=== PATIENT | male | born 1990 | race African-American/Black ===

== ENCOUNTER 2017-09-13 23:08 | Emergency (ER) | payer BC ==
[~2017-09-13] VITALS: Ht 180.3 cm; Wt 99.8 kg
[2017-09-14] MEDS ORDERED: PROMETHAZINE/C118 ML PO (01:40)
[2017-09-14] MEDS ORDERED: ZPAK PO (01:40)
[2017-09-14] MEDS ORDERED: IBUPROFEN 800800 M1 PO (01:40)
== END 2017-09-14 02:04 | disposition home or self-care (01) ==
LOC: ER 23:08
DX: J18.9 Pneumonia, unspecified organism (principal)

== ENCOUNTER 2021-02-08 14:50 | Emergency (ER) | payer BC ==
[~2021-02-08] VITALS: Ht 180.3 cm; Wt 99.8 kg
[~2021-02-08 14:50] MED LIST: IBUPROFEN 800800 M1 PO; PROMETHAZINE/C118 ML PO; ZPAK PO
[2021-02-08] MEDS ORDERED: CEPHALEXIN500 MG PO (15:58)
[2021-02-08 16:22] VITALS: BP 132/73
== END 2021-02-08 16:22 | disposition home or self-care (01) ==
LOC: ER 14:50
DX: S61.311A Laceration without foreign body of left index finger with damage to nail, initial encounter (principal); W23.0XXA Caught, crushed, jammed, or pinched between moving objects, initial encounter; Y93.H2 Activity, gardening and landscaping; Y92.89 Other specified places as the place of occurrence of the external cause; Y99.8 Other external cause status